=== PATIENT | female | born 1960 | race Caucasian/White ===

== ENCOUNTER → 2024-05-31 14:43 | Outpatient (REF) | payer OTHER, SELFPAY | LOC: WDC 14:43 | PROVIDERS: ATTENDING PHYSICIAN Family Medicine; FAMILY PHYSICIAN Family Medicine | DX: Z12.31 Encounter for screening mammogram for malignant neoplasm of breast (principal) | CPT/HCPCS: 77063; 77067 ==

== ENCOUNTER → 2025-06-15 13:51 | Outpatient (REF) | payer OTHER, SELFPAY | LOC: WDC 13:51 | PROVIDERS: ATTENDING PHYSICIAN Family Medicine | DX: Z12.31 Encounter for screening mammogram for malignant neoplasm of breast (principal) | CPT/HCPCS: 77063; 77067 ==

== ENCOUNTER 2025-09-09 19:07 | Emergency (ER) | payer OTHER, SELFPAY ==
[2025-09-09 19:09] VITALS: BP 138/78
[2025-09-09 19:25] VITALS: BP 127/83
[2025-09-09 19:52] VITALS: BMI 26.5
[2025-09-09 20:00] VITALS: BP 125/85
[2025-09-09 20:11] LABS: Hematocrit 40.4 % (37.0-47.0); Hemoglobin 14.0 g/dL (12.0-16.0); Mean Corp Hgb Conc. 34.7 g/dL (33.0-37.0); Mean Corpuscular Volume 90.2 fL (81.0-99.0); Nucleated Red Blood Cells % 0 %; Platelet Count 243 10^3/uL (130-400); Red Cell Dist. Width 11.8 % (11.5-14.5)
[2025-09-09 20:23] LABS: D-Dimer 0.54 ug/mlFEU (0.00-0.50)
[2025-09-09 20:31] LABS: ALT (SGPT) 79 U/L (0-35); AST (SGOT) 93 U/L (14-36); Albumin 4.7 g/dl (3.5-5.0); Alkaline Phosphatase 77 U/L (38-126); Blood Urea Nitrogen 11 mg/dl (7-17); Calcium 9.5 mg/dl (8.4-10.2); Carbon Dioxide 25 mmol/L (22-30); Chloride 106 mmol/L (98-107); Estimated Creatinine Clearance 73 ml/min; Glucose 178 mg/dl (70-99); Potassium 4.3 mmol/L (3.5-5.1); Sodium 136 mmol/L (135-145); Total Protein 7.4 g/dl (6.3-8.2); eGFR > 60.00
[2025-09-09 20:39] LABS: Troponin I < 0.012 ng/ml
--- NOTE | 2025-09-09 21:30 | ED.GENMED ---
History of Present Illness
General
Chief Complaint: Jaw Pain
Source: patient
Exam Limitations: none
Time Seen by Provider: 09/09/25 19:26
History of Present Illness
History of Present Illness:
Note:
CHIEF COMPLAINT(S)
Jaw pain and back pain.
HISTORY OF PRESENT ILLNESS
The patient is a 64-year-old female presenting with a new onset of severe jaw pain accompanied by back pain, which was described as 'really bad' and began last night. The jaw pain was bilateral and the patient noted it became intensely severe to the
point where it was unbearable. The back pain started last night as well and has persisted through today. The patient describes the back pain as exacerbated by deep breaths, which causes a sharp pain remains consistent when she moves. She denies any
chest pain but notes a sensation of shortness of breath. She reported visiting her family doctor, who prescribed a muscle relaxant and a steroid. The patient was concerned about the potential for this to be referred pain.
PAST MEDICAL AND SURIGICAL HISTORY
The patient reports a history of premature ventricular contractions (PVCs) in her twenties, which led to the use of beta-blockers, although she no longer uses them. She denies having diabetes or significant heart problems but was informed her
cholesterol was around 220 in the past. She is currently on atorvastatin (Lipitor), 20 mg daily.
ALLERGIES
No known allergies to medications.
MEDICATIONS
Atorvastatin (Lipitor), 20 mg daily.
PHYSICAL EXAM
General: Alert, no acute distress.
Cardiovascular: Regular heart rate and rhythm, clear lung sounds, no edema observed in legs upon auscultation.
Respiratory: Lungs are clear with no evidence of pulmonary insufficiency.
Musculoskeletal: Discussed the potential for referred pain based on the cranial nerve and spinal alignment.
Back: No rash, no CVA tenderness
Extremities: No cyanosis no edema
PLAN
The plan includes obtaining blood tests, specifically a D-dimer to assess the possibility of a blood clot, although it is recognized that the test is sensitive rather than specific. A heart enzyme panel will be performed to evaluate cardiac risk
factors. Depending on the lab results, additional imaging such as a CT scan may be needed to rule out serious issues like a pulmonary embolism or aortic dissection. The patient was advised to follow up with lab results and to be vigilant for
worsening symptoms.
DIFFERENTIAL DIAGNOSIS
The Differential Diagnosis includes, in no particular order and is not limited to:
1. Pulmonary Embolism
2. Referred Pain (Possibly from Coronary Arteries)
3. Musculoskeletal Pain
4. Costochondritis
5. Cervical Radiculopathy
6. Temporomandibular Joint Disorder
7. Myocardial Ischemia or Infarction
8. Shingles (Zoster)
9. Pericarditis
10. Pneumonia
EKG
My independent EKG interpretation is:
- Time of EKG: Not specified
- Rhythm: Sinus rhythm
- Heart Rate: 103 bpm
- [place]: Normal
- Intervals: No acute interval changes noted
- Abnormalities: Non-specific ST-T wave changes
- Additional Notes: No acute segment changes
Disposition:
SUMMARY OF ENCOUNTER
The patient is a 64-year-old female presenting with severe right scapula pain and new onset of jaw discomfort. She was concerned due to the persistent pain, although she reported some improvement in her scapula pain after taking a muscle relaxant
prescribed by her primary care physician. She explicitly denied any chest pain. An EKG was performed and showed non-ischemic findings, while a troponin test returned negative at less than 0.012, ruling out myocardial infarction. A CBC returned
normal results. Given a slightly elevated D-dimer at 0.54, the patient underwent a CTA, which revealed no evidence of pulmonary embolism. A complete metabolic profile indicated normal sodium, potassium, bicarbonate, and slight elevations in blood
glucose at 178 and liver function tests at 93 and 79. Alkaline phosphatase and bilirubin levels were normal. Based on these findings, there was no clinical concern for acute coronary syndrome (ACS).
PLAN
Discharge the patient with outpatient follow-up. She will continue using muscle relaxers and steroids as prescribed by her primary care physician. The patient was advised to remain vigilant for any worsening symptoms and to follow up with her
healthcare provider for further evaluation.
INDEPENDENT REVIEW OF LABS AND INTERPRETATION OF TESTS
- My independent review of CBC is normal.
- My independent review of D-dimer indicates a slight elevation at 0.54.
- My independent review of the comprehensive metabolic profile shows normal sodium, potassium, and bicarbonate levels, with slightly elevated blood glucose at 178 and liver function tests at 93 and 79.
My independent interpretation of the CTA shows no evidence of pulmonary embolism.
PATIENT EDUCATION AND COUNSELING
The patient was informed about the test results indicating no acute coronary issues or pulmonary embolism. Given the minor lab abnormalities and absence of acute life-threatening conditions, she was reassured that discharge with follow-up is
appropriate. She was counseled on monitoring her symptoms and advised on when to seek further medical care.
FOLLOW-UP INSTRUCTIONS
The patient is advised to follow up with her primary care provider to monitor her symptoms and adjust her treatment plan as needed.
MEDICATION RECONCILIATION
The patient will continue the muscle relaxants and steroids as prescribed by her primary care physician.
MEDICAL DECISION MAKING
- Number and Complexity of Problems Addressed: Chronic conditions affecting care [premature ventricular contractions]. Differential diagnosis considerations included: Pulmonary Embolism, Referred Pain, Musculoskeletal Pain, Costochondritis, Cervical
Radiculopathy, Temporomandibular Joint Disorder, Myocardial Ischemia or Infarction, Shingles (Zoster), Pericarditis, Pneumonia.
- Data:
Category 1:
- EKG and troponin testing were reviewed, showing no ischemic changes and a negative troponin level.
- A CTA was independently interpreted as showing no pulmonary embolism.
- Lab tests ordered and independently reviewed included CBC, D-dimer, and a comprehensive metabolic profile.
Category 3:
- The management decision to discharge with follow-up was based on these test results and the patients clinical presentation.
- Risk:
Consideration of Admission/Observation: Escalation of care including admission/observation was considered given the complexity and risk of the patients presenting complaint, exam findings, and their underlying comorbidities. However, ultimately I
feel the patient is safe for outpatient management with close follow-up. Reasoning: Work-up reassuring, does not reveal any acute life/organ-threatening processes, patients symptoms well controlled upon reevaluation, reexamination is reassuring,
vitals are stable, patient agreeable with discharge, reliable for follow-up.
DIAGNOSIS
- Musculoskeletal pain, unspecified (M79.10)
- Elevated liver enzymes, unspecified (R74.8)
- Hyperglycemia, unspecified (R73.9)
Phy Exam
Physical Exam
Physical Exam:
.
Course
Orders/Labs/Results
Orders:
Orders
09/09/25 19:08
EKG [Electrocardiogram (*1)] Urgent
Reason for Study: Chest Pain
EKG- Treatment ONCE
09/09/25 20:00
Complete Blood Count/With Diff Urgent
Comprehensive Metabolic Panel Urgent
D-Dimer Urgent
Troponin I Urgent
09/09/25 20:39
CT Chest PE Study Urgent
Comment:
Reason For Exam: pleuritic pain, elevated ddimer
Abnormal Lab Results
09/09/25
20:00
MCH 31.3 H pg
(27.0-31.0)
Absolute Lymphs (auto) 0.5 L 10^3/uL
(1.2-3.4)
Neutrophils % 85.7 H %
(42.2-75.2)
Lymphocytes % 7.3 L %
(20.5-51.1)
D-Dimer 0.54 H ug/mlFEU
(0.00-0.50)
Glucose 178 H mg/dl
(70-99)
AST 93 H U/L
(14-36)
ALT 79 H U/L
(0-35)
09/09/25 20:00
09/09/25 20:00
Vital Signs
Initial and Last Documented VS:
Initial Vital Signs
Temp Pulse Resp BP Pulse Ox
99 F 104 16 138/78 98
09/09/25 19:09 09/09/25 19:09 09/09/25 19:09 09/09/25 19:09 09/09/25 19:09
Last Documented Vital Signs
Temp Pulse Resp BP Pulse Ox
99 F 102 20 125/85 97
09/09/25 19:09 09/09/25 20:30 09/09/25 20:30 09/09/25 20:00 09/09/25 20:30
*Pulse Oximetry
SaO2: 97
Oxygen Mode of Delivery: Room air
Patient hypoxic: no
*Critical Care Note
Total Time (30-74mins, 75-104mins- exclusive of procedures): Not Applicable
ED Attending Note
-
Portions of this chart may have been created with voice recognition software.� Occasional wrong word or��sound alike� substitutions may have occurred due to the inherent limitations of voice recognition software.
Discharge Plan
Departure
Patient Disposition: Home (Routine Discharge)
Date of Disposition: 09/09/25
Time of Disposition: 21:33
Patient with high blood pressure during this ER visit?: No
Discharge Problem:
Back pain
Instructions: Back Pain
Referrals:
Deanna Krishnan MD [Family Provider, Family Practice]
Activity Restrictions/Additional Instructions:
Please continue your medications. Patient return immediately for shortness of breath, worsening pain, chest pain, palpitations, fevers or any other concerns.
Interventions
Interventions:
*Risk Screen - Suicide Last Done: 09/09/25 19:09
*General Assessment Last Done: 09/09/25 19:09
*Neglect/Abuse Screening Last Done: 09/09/25 19:09
*ED- Fall Risk Assessment Last Done: 09/09/25 21:29
*ED COVID-19 Vaccine History Last Done: 09/09/25 19:51
*ED Influenza Vaccine History Last Done: 09/09/25 19:51
ED-EENT Assessment Last Done: 09/09/25 20:01
ED- Cardiac Assessment Last Done: 09/09/25 20:01
Discharge Date and Time
Print Language: INDONESIAN
[2025-09-09] MEDS: TORADOL 15 MG IV (21:50)
[2025-09-09] MEDS: ZOFRAN 4 MG IV ×2 (22:50)
[2025-09-09] MEDS: MORPHINE SULFATE 4 MG IV (22:51)
[2025-09-09 23:37] VITALS: BP 110/75
== END 2025-09-09 23:45 | disposition home or self-care (01) ==
LOC: EMR 19:07
PROVIDERS: EMERGENCY PHYSICIAN Emergency Medicine; FAMILY PHYSICIAN Family Medicine
DX: M54.9 Dorsalgia, unspecified (principal)
CPT/HCPCS: 99284; 96374; 96375 ×2; 71275; 80053; 84484; 85025; 85379; 93005; Q9967